=== PATIENT | female | born 1980 | race African-American/Black ===

== ENCOUNTER 2024-09-23 23:43 | Emergency (ER) | payer OTHER, SELFPAY ==
[2024-09-23 23:46] VITALS: PULSE 84; RESP 18; TEMP 36.7
[2024-09-24] MEDS: Ibuprofen 800 MG TAB PO (00:12)
--- NOTE | 2024-09-24 00:36 | ED.GENADUL_ITS ---
Discharge Plan Disposition Patient Disposition: Home Condition: Good Discharge Details Chief Complaint: RespSymp Clinical Impression: Viral URI Primary Care Provider: MelodieLocal ED Provider: Santos Cormier Home Meds and New Rx's Prescriptions: No Action fluoxetine [Prozac] 10 mg capsule 10 mg PO DAILY albuterol 90 mcg/actuation aerosol 90 mcg inhalation Qulipta 10 mg tablet 20 mg PO DAILY Discharge Instructions Instructions: Viral Upper Respiratory Infection, Adult (DC) Additional Instructions: At this time your flu, COVID, and RSV testing is negative. However I still suspect that there is a viral process causing your symptoms. Please take Tylenol and Motrin every 6 hours to help with your pain and aches. Please drink plenty of fluids and stay well-hydrated. If you notice any worsening of your symptoms, or any new symptoms such as vomiting, diarrhea, fever, chills, short ness of breath, chest pain, numbness, weakness, or fainting , please return immediately to the emergency department for reevaluation. Please follow up with your primary care provider as soon as possible for reassessment and reevaluation. As always, it was a pleasure participating in your medical care today. Stand Alone Forms: Work Release HPI General Date/Time Provider Initiated Documentation: 09/23/24 23:48 . HPI Narrative: This is a pleasant 44-year-old -[place] female with a past medical history of anxiety, PTSD, asthma, migraines who presents today for runny nose, congestion, myalgias and joint aches. Patient works in the medical field. She states that her symptoms began 3 days ago, initially beginning with just a URI. She has been taking Tylenol to help with the symptoms. She denies any hemoptysis, shortness of breath, difficulty breathing, or fever. No headache or neck pain. No other complaints at this time. Related Data Home Medications ?Medication ?Instructions ?Recorded ?Confirmed albuterol 90 mcg/actuation aerosol 90 mcg inhalation 09/23/24 inhaler fluoxetine 10 mg capsule (Prozac) 10 mg PO DAILY 09/23/24 09/23/24 atogepant 10 mg tablet (Qulipta) 20 mg PO DAILY 09/24/24 09/24/24 Allergies Allergy/AdvReac Type Severity Reaction Status Date / Time bee venom protein (honey bee) Allergy Anaphylaxis Verified 09/23/24 23:53 peanut Allergy Anaphylaxis Verified 09/23/24 23:53 pseudoephedrine (From Allergy Anaphylaxis Verified 09/23/24 23:53 Sudafed) General Stated Complaint: RespSymp ARLENE: 4 Exam Narrative Exam Narrative: 1.Const: Well-nourished, Well-developed, appearing stated age 2.Eyes: PERRL, no conjunctival injection, and symmetrical lids. 3.ENT: Atraumatic external nose and ears. Moist MM. Neck: Symmetric, trachea midline, No thyromegaly. Right tympanic membrane is espinoza and pearly, left tympanic membrane has a thin sliver of serous fluid on the inferior aspect. No evidence of purulent effusion or bulging. 4.CVS: +S1/S2, Peripheral pulses 2+ and equal in all extremities. Brisk capillary refill in all extremities. 5.RESP: Unlabored respiratory effort. Clear to auscultation bilaterally. No wheezes rales or rhonchi 6.GI: Soft, Nontender/Nondistended, No hepatosplenomegaly. No guarding or rebound. 7.MSK: Normocephalic/Atraumatic, Extremities w/o deformity or ttp No cyanosis or clubbing, Normal movement of all extremities 8.Skin: Warm, Dry. No rashes or lesions. 9.Neuro: title insurance examiner II-XII grossly intact. Sensation grossly intact, no focal neurologic deficits. 10.Psych: (AAO) x3. Appropriate mood and affect Course Vital Signs Vital signs: Vital Signs Temperature 36.7 C 09/23/24 23:46 Pulse 84 09/23/24 23:46 Respiratory Rate 18 09/23/24 23:46 Temperature 36.7 C 09/23/24 23:46 Pulse 84 09/23/24 23:46 Respiratory Rate 18 09/23/24 23:46 Respiratory Effort Normal 09/23/24 23:51 Respiratory Depth Normal 09/23/24 23:51 Medical Decision Making This is a pleasant 44-year-old -[place] female with a past medical history of anxiety, PTSD, asthma, migraines who presents today for runny nose, congestion, myalgias and joint aches. Patient works in the medical field. She states that her symptoms began 3 days ago, initially beginning with just a URI. She has been taking Tylenol to help with the symptoms. She denies any hemoptysis, shortness of breath, difficulty breathing, or fever. No headache or neck pain. No other complaints at this time. Exam demonstrates well-appearing female, clear lung sounds, no wheezes, no evidence of otitis media. Posterior oropharynx shows no tonsillar exudates or enlargement, no evidence of erythema or edema. Suspect viral etiology, most likely flu or COVID. Will test for these monitor closely and reassess. 1:04 AM COVID flu and RSV testing negative. Patient feels better after ibuprofen. Suspect viral upper respiratory infection. Recommend supportive therapy. With the small effusion in the left ear, I did recommend that the patient continue to monitor that closely, and if she develops any significant pain she should return for reassessment of concern for potential development of bacterial otitis media. I have extensively reviewed the treatment plan and discharge instructions with the patient. I have addressed all patient concerns at this time. The patient was made aware of what symptoms to monitor for that would warrant a return to the emergency department. Discussed the plan with the patient, they demonstrate verbal understanding and agreement with our assessment and plan at this time. The documentation in this chart was dictated using [employer] dictation software. Please excuse any dictation errors. Quality:SDOH Health Related Social Needs: No Data to Display PFSH All Active Problems (Updated 09/24/24 @ 00:47 by Santos Cormier DO) Viral URI (Acute) Social History Smoking/Tobacco Use Status: Never Smoking risk assessment performed?: Yes Alcohol Intake: current Alcohol Intake frequency: holidays/special occasions only
[2024-09-24 00:39] LABS: COVID-19 PCR Negative (Negative); Influenza A PCR Negative (Negative); Influenza B PCR Negative (Negative); RSV PCR Negative (Negative)
[2024-09-24 00:43] LABS: Source Nasopharynx
== END 2024-09-24 01:00 | disposition home or self-care (01) ==
LOC: ER 09-24 00:58
PROVIDERS: Emergency Provider Student in an Organized Health Care Education/Training Program
DX: J06.9 Acute upper respiratory infection, unspecified (principal)
CPT/HCPCS: 87637; 99282; 99283

== ENCOUNTER 2025-01-17 12:40 | Outpatient (CLI) | payer SELFPAY ==
[2025-01-18 10:39] LABS: HBs Antibody, Quant 23.2 mIU/mL (See Note); Hepatitis B Surface Ab Positive (See Note)
[2025-01-18 11:56] LABS: Rubella IgG Ab (UVM) Positive (See Note)
[2025-01-19 12:48] LABS: TB Interpretation Negative (Negative); TB1 Ag minus Nil 0.01 IU/mL; TB2 Ag minus Nil 0.00 IU/mL
== END 2025-01-17 12:41 | disposition home or self-care (01) ==
LOC: LBO 12:43
PROVIDERS: Visit Provider Nurse Practitioner Family
DX: Z02.1 Encounter for pre-employment examination (principal)
CPT/HCPCS: 36415; 86706; 86787; 86480; 86735; 86762; 86765

== ENCOUNTER 2025-06-14 11:20 | Emergency (ER) | payer OTHER, SELFPAY ==
[2025-06-14 11:33] VITALS: BP 130/88; PULSE 94; RESP 18; TEMP 37.2; O2SAT 98
--- NOTE | 2025-06-14 12:45 | DI.RAD_ITS ---
Exam(s) XR SHOULDER LT COMPLETE 2+V EXAM: XR SHOULDER LT COMPLETE 2+V CLINICAL HISTORY: pain in left shoulder. TECHNIQUE: 2D digital imaging was performed. COMPARISON: No exams were available for comparison FINDINGS: Four views No evidence of acute fracture or dislocation. No abnormal soft tissue densities. Subacromial space appears unremarkable and there are no calcific densities in the subacromial space. Clavicle and AC joint appear unremarkable. No obvious degenerative changes in the glenohumeral joint. No osseous lesions. Bone density appears normal. Clavicle appears unremarkable. IMPRESSION: No significant osseous findings on these four views of the left shoulder. DATA REPOSITORY: RADIATION DOSE DELIVERED:
--- NOTE | 2025-06-14 14:15 | DI.US_ITS ---
Exam(s) US SOFT TISSUE EXTREMITY EXAM: US SOFT TISSUE EXTREMITY CLINICAL HISTORY: pain left deltoid, abscess?. TECHNIQUE: Ultrasound was performed using standard protocol. COMPARISON: No exams were available for comparison FINDINGS: Sonographic assessment utilizing grayscale and color Doppler imaging was performed and targeted to the area of clinical concern. There is no soft tissue mass or focal fluid collection present. IMPRESSION: Unremarkable examination. DATA REPOSITORY:
[2025-06-14] MEDS: Diclofenac 1% Gel 100 GM TUBE TP (14:32)
[2025-06-14] MEDS: Lidocaine 5% Patch 1 PATCH TP (14:32)
[2025-06-14] MEDS: Ketorolac 15 MG/ML VIAL IM (15:22)
--- NOTE | 2025-06-14 16:11 | W.ED.GENAD ---
Discharge Plan Disposition Patient Disposition: Home Condition: Good Discharge Details Clinical Impression: Shoulder injury related to vaccine administration (SIRVA) Primary Care Provider: Melodie,Local ED Provider: Sarah Simental Home Meds and New Rx's Prescriptions: New methocarbamol 750 mg tablet 750 mg PO TID Qty: 14 0RF No Action fluoxetine [Prozac] 10 mg capsule 10 mg PO DAILY albuterol 90 mcg/actuation aerosol 90 mcg inhalation PRN Qulipta 10 mg tablet 20 mg PO DAILY Discharge Instructions Additional Instructions: Please call your primary care provider first thing in the morning to schedule follow-up appointment. A referral to PT may be helpful to work on shoulder mobility. I recommend that you continue to use ibuprofen 800 mg and Tylenol 1000 mg every 8 hours together for discomfort. You may also continue use Voltaren gel, lidocaine patches, heat/ice (not to be used over lidocaine patches), and Robaxin for muscle relaxation as needed (please note that this may make you sleepy, so use with caution and avoid use when driving, climbing ladders, or doing any potentially dangerous activities). You may use the morphine tablets provided for severe pain only, keep in mind that these are highly addictive and to only be used for severe pain. Return to emergency care if you develop new color change to arm, numbness, swelling, coolness/coldness to fingers, or if you are very worried and need to be rechecked again immediately. Stand Alone Forms: Portal Information Discharge Data Discharge Date/Time-TO BE ENTERED AT DEPARTURE: 06/14/25 17:41 HPI General Date/Time Provider Initiated Documentation: 06/14/25 13:50. HPI Narrative: This 45-year-old female presents with report of left shoulder pain. She states that she had a flu shot injected into her deltoid muscle on the left side on 24 May and has pain that is worsening since that time. She has been taking Motrin and even tried some prednisone without alleviation in pain. She denies any fever or chills. She denies chest pain or shortness of breath. She denies any chance of . Pain is worsened with palpation and movement. She does not feel like her joint is involved. Related Data Home Medications ?Medication ?Instructions ?Recorded ?Confirmed albuterol 90 mcg/actuation aerosol 90 mcg inhalation PRN 09/23/24 06/14/25 inhaler fluoxetine 10 mg capsule (Prozac) 10 mg PO DAILY 09/23/24 06/14/25 atogepant 10 mg tablet (Qulipta) 20 mg PO DAILY 09/24/24 06/14/25 methocarbamol 750 mg tablet 750 mg PO TID #14 tabs 06/14/25 Previous Rx's ?Medication ?Instructions ?Recorded methocarbamol 750 mg tablet 750 mg PO TID #14 tabs 06/14/25 Allergies Allergy/AdvReac Type Severity Reaction Status Date / Time bee venom protein (honey bee) Allergy Anaphylaxis Verified 06/14/25 11:40 peanut Allergy Anaphylaxis Verified 06/14/25 11:40 pseudoephedrine (From Allergy Anaphylaxis Verified 06/14/25 11:40 Sudafed) General Stated Complaint: Recheck ARLENE: 4 Exam Narrative Exam Narrative: 45-year-old female alert, oriented, reproducible tenderness with some firmness in the left deltoid without obvious erythema. No obvious evidence of shoulder involvement, neurovascularly intact, no swelling to forearm no palpable fluctuance Course Vital Signs Vital signs: Vital Signs Temperature 37.2 C 06/14/25 11:33 Pulse 94 H 06/14/25 11:33 Respiratory Rate 18 06/14/25 11:33 Blood Pressure 130/88 06/14/25 11:33 Pulse Oximetry 98 06/14/25 11:33 Temperature 37.2 C 06/14/25 11:33 Temperature Source Oral 06/14/25 11:33 Pulse 94 H 06/14/25 11:33 Respiratory Rate 18 06/14/25 11:33 Blood Pressure 130/88 06/14/25 11:33 Blood Pressure Position Sitting 06/14/25 11:33 Pulse Oximetry 98 06/14/25 11:33 Oxygen Delivery Method Room Air 06/14/25 11:33 Oxygen Flow Rate 0 06/14/25 11:33 Pain Level 8 06/14/25 11:33 Medical Decision Making Results: X-ray of left shoulder per radiology interpretation my review does not show acute abnormality, pending ultrasound for possible abscess Assessment and plan: Patient placed on lidocaine and diclofenac, will order muscle relaxant, pending ultrasound low suspicion clinically for DVT is not circumferential and very localized to the left deltoid muscle. Signed out pending ultrasound. PFSH All Active Problems (Updated 06/14/25 @ 16:57 by Sarah Liu Shoulder injury related to vaccine administration (SIRVA) (Acute) Social History Smoking/Tobacco Use Status: Never Smoking risk assessment performed?: Yes Alcohol Intake: current Alcohol Intake frequency: holidays/special occasions only Substance use type: does not use
[2025-06-14] MEDS: MORPHine IR 15 MG TAB, 4 TABS/BTL PO (16:39)
--- NOTE | 2025-06-14 16:40 | W.EDPROG ---
Date of service: 06/14/25 Time of Service: 16:00 Medical Decision Making Handoff report received from CASSIE Zamora, daytime HERMELINDA. Please see her note for full HPI, physical exam, DDx, and interpretation. Milena Mora is a 45-year-old female presents to the emergency department today for evaluation of left shoulder pain since flu vaccine in her deltoid on May 27. She reports that she has had increasing weakness and pain with movement of her arm. Denies distal numbness/tingling, fever/chills, coolness or color change to extremity. Workup today reassuring, no acute abnormalities noted on ultrasound or x-ray. While in the emergency department Mike received lidocaine patch, Toradol, and diclofenac with good improvement of symptoms, says she is now able to move her arm a bit more than she was before, though is most comfortable keeping her arm in internal rotation and flexion. A limited number of morphine tablets were provided by CASSIE Zamora for home use. History and presentation consistent with shoulder injury related to vaccine administration, likely soft tissue or inflammatory process. This would likely benefit from PT. Reviewed discharge instructions with Milena Mora, including symptomatic management, importance of follow-up with PCP for further evaluation/management, risks associated with opioid pain medications and muscle relaxers, and red flags indicating need for return to emergency care. She voices agreement plan of care. Imaging Data Radiologic Study: Radiologist's impression: Exam(s) US SOFT TISSUE EXTREMITY EXAM: US SOFT TISSUE EXTREMITY CLINICAL HISTORY: pain left deltoid, abscess?. TECHNIQUE: Ultrasound was performed using standard protocol. COMPARISON: No exams were available for comparison FINDINGS: Sonographic assessment utilizing grayscale and color Doppler imaging was performed and targeted to the area of clinical concern. There is no soft tissue mass or focal fluid collection present. IMPRESSION: Unremarkable examination. Radiologic Study #2: Radiologist's impression: Exam(s) XR SHOULDER LT COMPLETE 2+V EXAM: XR SHOULDER LT COMPLETE 2+V CLINICAL HISTORY: pain in left shoulder. TECHNIQUE: 2D digital imaging was performed. COMPARISON: No exams were available for comparison FINDINGS: Four views No evidence of acute fracture or dislocation. No abnormal soft tissue densities. Subacromial space appears unremarkable and there are no calcific densities in the subacromial space. Clavicle and AC joint appear unremarkable. No obvious degenerative changes in the glenohumeral joint. No osseous lesions. Bone density appears normal. Clavicle appears unremarkable. IMPRESSION: No significant osseous findings on these four views of the left shoulder. Exam Const General: cooperative, healthy appearing and comfortable Nutritional Appearance: average body habitus Orientation: alert and oriented x3 Resp Effort & Inspection: normal respiratory effort and able to speak in complete sentences Skin General skin exam: no rashes or lesions noted Neuro General: patient alert, patient oriented x3, tone normal and moves all extremities Motor: muscle tone normal throughout Sensory Exam: no sensory deficits noted Extrem Left upper extremity: shoulder/upper arm Details: tenderness and abnormal ROM Details: held in an abnormal fashion Details: in ADduction and in flexion; no deformity and no unsual warmth Discharge Plan Disposition Patient Disposition: Home Condition: Good Discharge Details Clinical Impression: Shoulder injury related to vaccine administration (SIRVA) Primary Care Provider: Melodie,Local ED Provider: Sarah Simental Home Meds and New Rx's Prescriptions: New methocarbamol 750 mg tablet 750 mg PO TID Qty: 14 0RF No Action fluoxetine [Prozac] 10 mg capsule 10 mg PO DAILY albuterol 90 mcg/actuation aerosol 90 mcg inhalation PRN Qulipta 10 mg tablet 20 mg PO DAILY Discharge Instructions Additional Instructions: Please call your primary care provider first thing in the morning to schedule follow-up appointment. A referral to PT may be helpful to work on shoulder mobility. I recommend that you continue to use ibuprofen 800 mg and Tylenol 1000 mg every 8 hours together for discomfort. You may also continue use Voltaren gel, lidocaine patches, heat/ice (not to be used over lidocaine patches), and Robaxin for muscle relaxation as needed (please note that this may make you sleepy, so use with caution and avoid use when driving, climbing ladders, or doing any potentially dangerous activities). You may use the morphine tablets provided for severe pain only, keep in mind that these are highly addictive and to only be used for severe pain. Return to emergency care if you develop new color change to arm, numbness, swelling, coolness/coldness to fingers, or if you are very worried and need to be rechecked again immediately. Stand Alone Forms: Portal Information
== END 2025-06-14 17:41 | disposition home or self-care (01) ==
PROVIDERS: Emergency Provider Nurse Practitioner Family
DX: M02.2 Postimmunization arthropathy (principal)
CPT/HCPCS: 00123; 76881; 96372; 99284; 73030; J1885